=== PATIENT | male | born 1975 | race Caucasian/White ===

== ENCOUNTER 2017-05-18 02:30 | Inpatient (IN) | payer OTHER ==
[~2017-05-18] VITALS: Ht 170.2 cm; Wt 88.3 kg
[~2017-05-18 02:30] MED LIST: LISI-515 PO; LOVA20TA PO; TAMS5CAP PO; TRAM50TA PO
[2017-05-18 04:00] VITALS: BP 118/71; PULSE 83; RESP 16; TEMP 98.4; O2SAT 97
[2017-05-18] MEDS ORDERED: NALOXONE HCL 0.4 MG/ML AMP IV PUSH PRN (04:45)
[2017-05-18] MEDS ORDERED: ACETAMINOPHEN 325 MG TAB PO PRN (04:45)
[2017-05-18] MEDS ORDERED: ONDANSETRON HCL 4 MG/2 ML VIAL IVP PRN (04:45)
[2017-05-18] MEDS ORDERED: SODIUM CHLORIDE 0.9% FLUSH 10 ML FLUSH IV FLUSH PRN (04:45)
[2017-05-18] MEDS: SODIUM CHLOR 0.9% 1000 ML INJ 1,000 ML IV SCH ×2 (05:21→20:10)
--- NOTE | 2017-05-18 05:35 | HHI.HP ---
[facility] Lacey Chambers MD Admission Diagnosis Diagnoses: Travel History International Travel<30 Days: No Contact w/Intl Traveler <30 Da: No Traveled to Known Affected Are: No History of Present Illness 41-year-old male with past medical history significant for hypertension and hyperlipidemia presents to the emergency department for evaluation of progressive bilateral lower back pain that radiates to the abdomen. The patient reports that approximately 3 days ago he began to feel "woozy" at work. He also developed intermittent nausea/vomiting. He was in bed that night and started to have bilateral CVA tenderness. The following day he followed up with his PCP who diagnosed him with possible kidney stones and recommended follow-up with urology. The patient reports that his nausea and vomiting aggressively worsened as did his lower back pain. He presented to the emergency department for further evaluation. BUN/creatinine 29/4.40. The patient has no history of kidney disease. Review of Systems Denies fever or chills Denies blurry vision, otorrhea, rhinorrhea Denies sore throat and cough No chest pain, palpitations No shortness of breath or wheezing Positive abdominal pain Denies constipation/diarrhea. Positive nausea/vomiting Denies muscle pain Denies focal weakness No rashes Past Family Social History Past Medical History Hypertension Hyperlipidemia Past Surgical History Left ankle surgery Hydrocele repair Reported Medications Reported Meds & Active Scripts Active Reported Flomax (Tamsulosin HCl) 0.4 Mg Cap 0.4 Mg PO HS Tramadol (Tramadol HCl) 50 Mg Tab 50 Mg PO Q8H PRN Lisinopril 20 Mg Tab 20 Mg PO DAILY Lovastatin 20 Mg Tab 20 Mg PO DAILY Allergies: Coded Allergies: No Known Allergies (Unverified , 05/17/17) Family History Father with diabetes mellitus Social History Positive tobacco. Occasional marijuana. Denies alcohol and other illicit drugs. Physical Exam Physical Exam GENERAL: male sitting up in bed SKIN: No rashes, ecchymoses or lesions. Cool and dry. HEAD: Atraumatic. Normocephalic. No temporal or scalp tenderness. EYES: Pupils equal round and reactive. Extraocular motions intact. No scleral icterus. No injection or drainage. ENT: Nose without bleeding, purulent drainage or septal hematoma. Throat without erythema, tonsillar hypertrophy or exudate. Uvula midline. Airway patent. NECK: Trachea midline. No JVD or lymphadenopathy. Supple, nontender, no meningeal signs. CARDIOVASCULAR: Regular rate and rhythm without murmurs, gallops, or rubs. RESPIRATORY: Clear to auscultation. Breath sounds equal bilaterally. No wheezes , rales, or rhonchi. GASTROINTESTINAL: Abdomen soft, non-tender, nondistended. No hepato-splenomegaly , or palpable masses. No guarding. : No CVA tenderness MUSCULOSKELETAL: Extremities without clubbing, cyanosis, or edema. No joint tenderness, effusion, or edema noted. No calf tenderness. NEUROLOGICAL: Awake and alert. Cranial nerves II through XII intact. Motor and sensory grossly within normal limits. Normal speech. Caprini VTE Risk Assessment Caprini VTE Risk Assessment: No/Low Risk (score <= 1) Caprini Risk Assessment Model Point Value = 1 Point Value = 2 Point Value = 3 Point Value = 5 Age 41-60 Minor surgery BMI > 25 kg/m2 Swollen legs Varicose veins or History of unexplained or recurrent spontaneous Oral contraceptives or hormone replacement Sepsis (< 1 month) Serious lung disease, including pneumonia (< 1 month) Abnormal pulmonary function Acute myocardial infarction Congestive heart failure (< 1 month) History of inflammatory bowel disease Medical patient at bed rest Age 61-74 Arthroscopic surgery Major open surgery (> 45 min) Laparoscopic surgery (> 45 min) Malignancy Confined to bed (> 72 hours) Immobilizing plaster cast Central venous access Age >= 75 History of VTE Family history of VTE Factor V Leiden Prothrombin [id number] Lupus anticoagulant Anticardiolipin antibodies Elevated serum homocysteine Heparin-induced thrombocytopenia Other congenital or acquired thrombophilia Stroke (< 1 month) Elective arthroplasty Hip, pelvis, or leg fracture Acute spinal cord injury (< 1 month) Prophylaxis Regimen Total Risk Factor Score Risk Level Prophylaxis Regimen 0-1 Low Early ambulation 2 Moderate Order ONE of the following: *Sequential Compression Device (SCD) *Heparin 5000 units SQ BID 3-4 Higher Order ONE of the following medications: *Heparin 5000 units SQ TID *Enoxaparin/Lovenox 40 mg SQ daily (WT < 150 kg, CrCl > 30 mL/min) *Enoxaparin/Lovenox 30 mg SQ daily (WT < 150 kg, CrCl > 10-29 mL/min) *Enoxaparin/Lovenox 30 mg SQ BID (WT < 150 kg, CrCl > 30 mL/min) AND/OR *Sequential Compression Device (SCD) 5 or more Highest Order ONE of the following medications: *Heparin 5000 units SQ TID (Preferred with Epidurals) *Enoxaparin/Lovenox 40 mg SQ daily (WT < 150 kg, CrCl > 30 mL/min) *Enoxaparin/Lovenox 30 mg SQ daily (WT < 150 kg, CrCl > 10-29 mL/min) *Enoxaparin/Lovenox 30 mg SQ BID (WT < 150 kg, CrCl > 30 mL/min) AND *Sequential Compression Device (SCD) Assessment and Plan Assessment and Plan Assessment/plan: 1. Acute renal failure Patient with normal renal function 3 months ago during routine lab work BUN/creatinine 29/4.40 Nephrology consulted, appreciate recommendations Renal ultrasound pending 2. Hypertension Holding home lisinopril for acute kidney injury Monitor 3. Hyperlipidemia Continue statin FEN Renal diet Electrolytes: monitor and replete prn NS at 100 cc/hr Physician Certification 2 Midnight Certification Type: Admission for Inpatient Services Order for Inpatient Services The services are ordered in accordance with Medicare regulations or non- Medicare payer requirements, as applicable. In the case of services not specified as inpatient-only, they are appropriately provided as inpatient services in accordance with the 2-midnight benchmark. Estimated LOS (days): 2 2 days is the estimated time the patient will need to remain in the hospital, assuming treatment plan goals are met and no additional complications. Post-Hospital Plan: Not yet determined Rand Lane MD May 18, 2017 05:35
[2017-05-18 08:00] VITALS: BP 112/72; PULSE 95; RESP 18; TEMP 97.6; O2SAT 96
[2017-05-18] MEDS: PRAVASTATIN SOD 20 MG TAB PO SCH (08:22)
[2017-05-18] MEDS: SODIUM CHLORIDE 0.9% FLUSH 10 ML FLUSH IV FLUSH SCH ×2 (08:24→21:00)
[2017-05-18 08:36] LABS: AUTOMATED NEUTROPHIL # 5.8 TH/MM3 (1.8-7.7); BASOPHIL % 0.4 % (0.0-2.0); EOSINOPHIL # 0.2 TH/MM3 (0-0.4); HEMATOCRIT 34.7 % (39.0-51.0); HEMOGLOBIN 11.7 GM/DL (13.0-17.0); LYMPH % 21.4 % (9.0-44.0); LYMPHOCYTE # 1.9 TH/MM3 (1.0-4.8); MEAN CELL VOLUME 82.2 FL (80.0-100.0); MEAN CORPUSCULAR HEMOGLOBIN 27.6 PG (27.0-34.0); MEAN CORPUSCULAR HGB CONC 33.6 % (32.0-36.0); MEAN PLATELET VOLUME 8.8 FL (7.0-11.0); MONOCYTE # 0.8 TH/MM3 (0-0.9); NEUT % 67.2 % (16.0-70.0); PLATELET COUNT 273 TH/MM3 (150-450); RED BLOOD COUNT 4.23 MIL/MM3 (4.50-5.90); RED CELL DISTRIBUTION WIDTH 13.6 % (11.6-17.2); WHITE BLOOD COUNT 8.7 TH/MM3 (4.0-11.0)
[2017-05-18] MEDS ORDERED: LISINOPRIL 20 MG TAB PO SCH (09:00)
[2017-05-18 09:03] LABS: BICARBONATE 25.6 MEQ/L (21.0-32.0); CALCIUM 8.2 MG/DL (8.5-10.1); CREATININE 3.44 MG/DL (0.60-1.30)
--- NOTE | 2017-05-18 09:59 | RADRPT ---
EXAM DATE/TIME: 05/18/2017 08:10 [place] COMPARISON: No previous studies available for comparison. INDICATIONS : Increased BUN/creatinine. MEDICAL HISTORY : Hypercholesterolemia. Hypertension. Sleep apnea. GERD. Tobacco use. SURGICAL HISTORY : [place] teeth. Left ankle surgery. Hydrocele. ENCOUNTER: Initial ACUITY: 1 day PAIN SCORE: 0/10 LOCATION: Bilateral flank MEASUREMENTS: RIGHT KIDNEY: 12.5 x 5.1 x 5.4 cm LEFT KIDNEY: 12.0 x 6.4 x 5.1 cm FINDINGS: RIGHT KIDNEY: Renal cortex is normal in thickness and echotexture. No hydronephrosis, stone, or mass. LEFT KIDNEY: Renal cortex is normal in thickness and echotexture. No hydronephrosis, stone, or mass. BLADDER: Within normal limits given the degree of distension. CONCLUSION: Normal examination. Abimael Cope Jr., MD on May 18, 2017 at 9:45 Board Certified Radiologist. This report was verified electronically.
[2017-05-18 12:00] VITALS: BP 122/74; PULSE 87; RESP 18; TEMP 97.5; O2SAT 96
[2017-05-18 16:00] VITALS: BP 128/84; PULSE 81; RESP 18; TEMP 97.2; O2SAT 97
--- NOTE | 2017-05-18 17:06 | PD.CONS ---
HPI Service Nephrology Consult Requested By Dr. Lane Reason for Consult AR[facility] Primary Care Physician Lacey Chambers MD History of Present Illness The patient is a 41 yo male who came to the ED on 05/18 with complaints of L flank pain that was radiating to the abdomen. Says he had been having pain in left flank for about 4 days that he described as nagging, but was also accompanied by anorexia and vomiting. He had contacted his PCP who was suspicious for kidney stone. States he has been using multiple OTC NSAIDs for pain over the past few days. Has no other history of kidney stones. No known hx of CKD. Sees PCP q3 months with labs. Says that he had URI recently and just finished course of Cipro. Only labs available are from this admission Admitting SCr 4.40 with eGFR 15. Improved with IVF overnight to 3.44 and GFR 20. Renal US showed no stones. UA positive for RBCs. States that his pain has completely resolved since his admission. Did not knowingly pass any kidney stones. No NV since admission. Review of Systems Constitutional: COMPLAINS OF: Change in appetite Gastrointestinal: COMPLAINS OF: Abdominal pain, Nausea, Vomiting Past Family Social History Allergies: Coded Allergies: No Known Allergies (Unverified , 05/17/17) Past Medical History HTN HLD Past Surgical History L ankle repair Hydrocele repair Reported Medications Flomax (Tamsulosin HCl) 0.4 Mg Cap 0.4 Mg PO HS (started by PCP just this week for suspected kidney stone) Tramadol (Tramadol HCl) 50 Mg Tab 50 Mg PO Q8H PRN Lisinopril 20 Mg Tab 20 Mg PO DAILY Lovastatin 20 Mg Tab 20 Mg PO DAILY Active Ordered Medications Current Medications Medications (Trade) Dose Ordered Sig/[place] Route Start Time Stop Time Status Last Admin Sodium Chloride 1,000 ml @ 100 mls/hr Q10H IV 05/18/17 04:35 05/18/17 05:21 (NS Flush) 2 ml UNSCH PRN IV FLUSH 05/18/17 04:45 (NS Flush) 2 ml BID IV FLUSH 05/18/17 09:00 (Tylenol) 650 mg Q4H PRN PO 05/18/17 04:45 05/18/17 15:43 (Zofran Inj) 4 mg Q6H PRN IVP 05/18/17 04:45 (Narcan Inj) 0.4 mg UNSCH PRN IV PUSH 05/18/17 04:45 (Pravachol) 20 mg DAILY PO 05/18/17 09:00 05/18/17 08:22 Family History Father is diabetic No FHx kidney disease Social History Recently stopped smoking Occasional marijuana use Denies EtOH Works at a [employer] dealHealth Benefits Direct Physical Exam Vital Signs Vital Signs Date Time Temp Pulse Resp B/P (MAP) Pulse Ox O2 Delivery O2 Flow Rate FiO2 05/18/17 16:00 97.2 81 18 128/84 (99) 97 05/18/17 12:00 97.5 87 18 122/74 (90) 96 05/18/17 08:00 97.6 95 18 112/72 (85) 96 05/18/17 04:00 98.4 83 16 118/71 (87) 97 Physical Exam GENERAL: Sitting up in chair. NAD. SKIN: Warm and dry. HEAD: Atraumatic. Normocephalic. EYES: Pupils equal and round. No scleral icterus. No injection or drainage. ENT: No nasal bleeding or discharge. Mucous membranes pink and moist. NECK: Trachea midline. No JVD. CARDIOVASCULAR: Regular rate and rhythm. RESPIRATORY: No accessory muscle use. Clear to auscultation. Breath sounds equal bilaterally. GASTROINTESTINAL: Abdomen soft. Hepatic and splenic margins not palpable. Mild tenderness in LUQ to deep palpation. No CVA tenderness. MUSCULOSKELETAL: Extremities without clubbing, cyanosis, or edema. No obvious deformities. NEUROLOGICAL: Awake and alert. No obvious cranial nerve deficits. Normal speech. PSYCHIATRIC: Appropriate mood and affect; insight and judgment normal. Laboratory Laboratory Tests Test 05/18/17 07:50 White Blood Count 8.7 Red Blood Count 4.23 Hemoglobin 11.7 Hematocrit 34.7 Mean Corpuscular Volume 82.2 Mean Corpuscular Hemoglobin 27.6 Mean Corpuscular Hemoglobin Concent 33.6 Red Cell Distribution Width 13.6 Platelet Count 273 Mean Platelet Volume 8.8 Neutrophils (%) (Auto) 67.2 Lymphocytes (%) (Auto) 21.4 Monocytes (%) (Auto) 9.0 Eosinophils (%) (Auto) 2.0 Basophils (%) (Auto) 0.4 Neutrophils # (Auto) 5.8 Lymphocytes # (Auto) 1.9 Monocytes # (Auto) 0.8 Eosinophils # (Auto) 0.2 Basophils # (Auto) 0.0 CBC Comment DIFF FINAL Differential Comment Blood Urea Nitrogen 24 Creatinine 3.44 Random Glucose 88 Calcium Level 8.2 Sodium Level 141 Potassium Level 4.0 Chloride Level 109 Carbon Dioxide Level 25.6 Anion Gap 6 Estimat Glomerular Filtration Rate 20 Result Diagram: 05/18/17 0750 05/18/17 0750 Imaging Last Impressions Renal Ultrasound 05/18/17 0000 Signed Impressions: Service Date/Time: April 08:10 - CONCLUSION: Normal examination. Abimael Cope Jr., MD Assessment and Plan Problem List: (1) Acute renal insufficiency ICD Codes: N28.9 - Disorder of kidney and ureter, unspecified Plan: Appears his acute renal insufficiency is related to volume depletion coupled with recent heavy NSAID use. He does have RBCs in the urine from uncertain etiology. We will keep him on IVF overnight and check a few additional labs. If renal functions improving, would likely be cleared for discharge with f/u as outpatient. Avoid NSAIDs in house. Was also counselled about excessive NSAID use at home as well. (2) Hypertension ICD Codes: I10 - Essential (primary) hypertension Plan: Lisinopril held given ARF. BP stable (3) Hematuria ICD Codes: R31.9 - Hematuria, unspecified Plan: Repeat UA. Check ANCA for completeness. Grace Coronel May 18, 2017 17:05
[2017-05-18 22:25] LABS: COMPLEMENT C3 133 MG/DL (90-180); COMPLEMENT C4 34 MG/DL (10-40)
[2017-05-19 06:16] LABS: HEMATOCRIT 34.3 % (39.0-51.0); HEMOGLOBIN 11.4 GM/DL (13.0-17.0); MEAN CORPUSCULAR HEMOGLOBIN 27.4 PG (27.0-34.0); MEAN CORPUSCULAR HGB CONC 33.4 % (32.0-36.0); MEAN PLATELET VOLUME 8.7 FL (7.0-11.0); PLATELET COUNT 264 TH/MM3 (150-450); RED BLOOD COUNT 4.18 MIL/MM3 (4.50-5.90); RED CELL DISTRIBUTION WIDTH 13.3 % (11.6-17.2); WHITE BLOOD COUNT 7.8 TH/MM3 (4.0-11.0)
[2017-05-19 06:50] LABS: ALBUMIN 3.3 GM/DL (3.4-5.0); BICARBONATE 25.8 MEQ/L (21.0-32.0); CALCIUM 8.1 MG/DL (8.5-10.1); CREATININE 1.66 MG/DL (0.60-1.30); PHOSPHORUS 2.9 MG/DL (2.5-4.9)
[2017-05-19 08:00] VITALS: BP 135/72; PULSE 75; RESP 16; TEMP 97.6; O2SAT 97
[2017-05-19] MEDS: PRAVASTATIN SOD 20 MG TAB PO SCH (08:45)
[2017-05-19] MEDS: SODIUM CHLORIDE 0.9% FLUSH 10 ML FLUSH IV FLUSH SCH (08:46)
[2017-05-19] MEDS: SODIUM CHLOR 0.9% 1000 ML INJ 1,000 ML IV SCH (10:35)
[2017-05-19 12:00] VITALS: BP 134/78; PULSE 74; RESP 15; TEMP 97.1; O2SAT 97
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
[2017-05-19 13:13] LABS: HEPATITIS B SURFACE ANTIGEN NEGATIVE (NEGATIVE); HEPATITIS C AB IgG NEGATIVE (NEGATIVE)
== END 2017-05-19 13:43 | disposition home or self-care (01) | DRG 684 ==
LOC: NEDDLT 02:30 → N06B 02:40
PROVIDERS: ADMIT Internal Medicine; ATTEND Internal Medicine
DX: N17.9 Acute kidney failure, unspecified (principal); I10 Essential (primary) hypertension; E78.5 Hyperlipidemia, unspecified; F17.210 Nicotine dependence, cigarettes, uncomplicated; E86.9 Volume depletion, unspecified; R31.9 Hematuria, unspecified; M54.5 Low back pain
CPT/HCPCS: 76775; 80048; 80053; 80069; 81001; 82306; 83690; 83970; 85025; 85027; 86021; 86160; 86803; 87086; 87205; 87340; 96361; 96374; 96375; J1885; J2405; J7030